=== PATIENT | female | born 1930 | race Caucasian/White ===

== ENCOUNTER → 2018-10-23 | Outpatient (CLI) | payer OTHER ==
[~2018-10-23] MED LIST: ALEVE220 MG PO; ASPIRIN325 PO; CITRACAL-VIT D1 EACH PO; COLACE100 MG PO; MELATONIN 5 MG1 EAC1 PO; METAMUCIL PAC1 UDPKT PO; MULTIVITAMIN; NEURONTIN 400400 M1 PO; NEURONTIN600 MG PO; NORCO 5-325 TA1 EACH PO; OMEPRAZOLE20 M2 PO; OXYCODONE HCL 55 MG PO; PERCOCET PO; TRAMADOL 50 MG50 MG PO; TYLENOL325 MG PO; XARELTO10 MG PO
== END ==
LOC: M.CT 10:00
DX: S09.90XA Unspecified injury of head, initial encounter (principal); G31.9 Degenerative disease of nervous system, unspecified; J32.3 Chronic sphenoidal sinusitis; H54.7 Unspecified visual loss; W19.XXXA Unspecified fall, initial encounter; Z91.81 History of falling; Y93.89 Activity, other specified; Y92.89 Other specified places as the place of occurrence of the external cause; Y99.8 Other external cause status

== ENCOUNTER 2018-12-09 06:01 | Emergency (ER) | payer OTHER ==
[~2018-12-09] VITALS: Ht 154.9 cm; Wt 64.4 kg
[2018-12-09] MEDS ORDERED: GABAPENTIN 100100 MG PO (06:13)
[2018-12-09] MEDS ORDERED: NEURONTIN 300300 M1 PO (06:14)
[2018-12-09 06:23] LABS: ABSOLUTE EOSINOPHILS 0.2 thou/uL (0.0-0.7); ABSOLUTE LYMPHOCYTES 1.2 thou/uL (0.8-5.3); ABSOLUTE MONOCYTES 0.4 thou/uL (0.0-1.2); ABSOLUTE NEUTROPHILS 3.4 thou/uL (1.6-8.1); BASOPHILS 0.9 %; HEMATOCRIT 42.6 % (37.0-47.0); HEMOGLOBIN 14.1 gm/dL (12.0-15.0); LYMPHOCYTES 22.5 %; MCH 30.1 pg (26.0-34.0); MCV 91.1 fL (80.0-100.0); MONOCYTES 8.3 %; MPV 8.2 fl. (7.2-11.1); NUCLEATED RBCS 0 /100WBC; PLATELET COUNT* 192 thou/uL (150-400); POLYS 65.3 %; RBC 4.68 mil/uL (4.20-5.00); RDW-CV 14.2 % (10.5-14.5); WBC 5.2 thou/uL (4.0-11.0)
[2018-12-09 06:34] LABS: ANION GAP 8 mmol/L (7-16); BUN 15 mg/dL (7-18); CALCIUM 9.4 mg/dL (8.5-10.1); CHLORIDE 101 mmol/L (98-107); CO2 32 mmol/L (21-32); CREATININE 0.8 mg/dL (0.6-1.3); GLUCOSE 96 mg/dL (70-99); POTASSIUM 3.9 mmol/L (3.5-5.1); SODIUM 141 mmol/L (136-145)
[2018-12-09 06:39] LABS: PROTIME 9.9 Seconds (9.20-11.50)
[2018-12-09 06:46] LABS: ALBUMIN 3.5 g/dL (3.4-5.0); ALKALINE PHOSPHATASE 72 U/L (46-116); LIPASE 109 U/L (73-393); NT-PRO BRAIN NAT PEPTIDE 125 pg/mL (<300); SGOT 14 U/L (15-37); SGPT 16 U/L (30-65); TOTAL BILIRUBIN 0.5 mg/dL (<0.1-1.0); TOTAL PROTEIN 6.9 g/dL (6.4-8.2); TROPONIN-I LEVEL <0.06 ng/mL (<0.06)
[2018-12-09] MEDS ORDERED: PREDNISONE 10 M10 M1 PO (08:09)
[2018-12-09] MEDS ORDERED: ACYCLOVIR 800800 MG PO (08:09)
[2018-12-09] MEDS ORDERED: NORCO 5-325 TA1 EAC1 PO (08:09)
[2018-12-09 09:01] VITALS: BP 150/68
--- NOTE | 2018-12-09 15:06 | EKG ---
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1930 Requested By: Sydney Martinez Order Number: [id number] MD: Dwight Patel Measurements Intervals [place] Rate: 67 P: 55 [place]: 178 QRS: 4 QRSD: 99 T: 37 QT: 383 QTc: 405 Interpretive Statements Sinus rhythm Borderline low voltage, extremity leads Baseline wander in lead(s) III,aVF Compared to ECG 12/15/2013 10:12:30 No significant changes Electronically Signed On 12-09-2018 15:06:22 CDT by Dwight Patel [email or web address] <ELECTRONICALLY SIGNED> By: Dwight Patel MD, [facility] 12/09/18 1506 [id number] Dwight Patel MD, [facility] /EPI
== END 2018-12-09 09:02 | disposition home or self-care (01) ==
LOC: M.ERS 06:01
PROVIDERS: Emergency Medicine
DX: B02.9 Zoster without complications (principal); R07.89 Other chest pain; Z90.710 Acquired absence of both cervix and uterus; Z90.49 Acquired absence of other specified parts of digestive tract; K21.9 Gastro-esophageal reflux disease without esophagitis; M79.7 Fibromyalgia; Z91.041 Radiographic dye allergy status; Z88.5 Allergy status to narcotic agent; Z88.0 Allergy status to penicillin; Z88.8 Allergy status to other drugs, medicaments and biological substances

== ENCOUNTER 2021-02-23 16:26 | Observation (INO) | payer MEDICARE ==
[~2021-02-23] VITALS: Ht 172.7 cm; Wt 66.7 kg
[~2021-02-23 16:26] MED LIST changes: +ACYCLOVIR 800800 MG PO; +GABAPENTIN 100100 MG PO; +NEURONTIN 300300 M1 PO; +NORCO 5-325 TA1 EAC1 PO; +PREDNISONE 10 M10 M1 PO
[2021-02-23 16:28] VITALS: BP 138/81
[2021-02-23] MEDS ORDERED: PROTONIX40 M4 PO (16:31)
[2021-02-23] MEDS ORDERED: COLACE100 MG PO (16:32)
[2021-02-23] MEDS ORDERED: ALLER-FEX180 MG PO (16:32)
[2021-02-23 17:05] LABS: ABSOLUTE BASOPHILS 0.1 thou/uL (0.0-0.2); ABSOLUTE EOSINOPHILS 0.1 thou/uL (0.0-0.7); ABSOLUTE LYMPHOCYTES 0.9 thou/uL (0.8-5.3); ABSOLUTE MONOCYTES 0.6 thou/uL (0.0-1.2); ABSOLUTE NEUTROPHILS 5.7 thou/uL (1.6-8.1); BASOPHILS 0.9 %; HEMATOCRIT 39.7 % (37.0-47.0); HEMOGLOBIN 13.4 gm/dL (12.0-15.0); LYMPHOCYTES 11.7 %; MCH 31.2 pg (26.0-34.0); MCHC 33.8 g/dL (28.0-37.0); MCV 92.2 fL (80.0-100.0); MONOCYTES 7.8 %; MPV 6.9 fl. (7.2-11.1); NUCLEATED RBCS 0 /100WBC; PLATELET COUNT* 286 thou/uL (150-400); POLYS 78.6 %; RDW-CV 13.5 % (10.5-14.5); WBC 7.3 thou/uL (4.0-11.0)
[2021-02-23 17:09] LABS: CALCIUM 9.5 mg/dL (8.5-10.1); CREATININE 0.8 mg/dL (0.6-1.3)
[2021-02-23 17:13] LABS: ALBUMIN 3.7 g/dL (3.4-5.0); TOTAL BILIRUBIN 0.4 mg/dL (<0.1-1.0); TOTAL PROTEIN 7.7 g/dL (6.4-8.2)
--- NOTE | 2021-02-23 17:51 | NUR ---
C-COLLAR REMOVED PER
[2021-02-23] MEDS ORDERED: ZOFRAN ODT4 MG DISSOLVE (18:19)
[2021-02-23 19:17] VITALS: BP 173/92
[2021-02-23 22:57] VITALS: BP 146/82
[2021-02-24 04:01] VITALS: BP 159/80
[2021-02-24 08:41] VITALS: BP 158/81
--- NOTE | 2021-02-24 09:54 | NUR ---
PT TAKEN TO PACU WITH BOARDING RN.
[2021-02-24] MEDS ORDERED: PEPCID20 MG PO (11:50)
[2021-02-24] MEDS ORDERED: ANORO ELLIPTA1 EACH INH (12:01)
--- NOTE | 2021-02-24 12:18 | EKG ---
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1930 Requested By: Shaun Maddox Order Number: [id number] MD: Chris Alvarez Measurements Intervals [place] Rate: 79 P: 57 FL: 173 QRS: 3 QRSD: 92 T: 33 QT: 406 QTc: 466 Interpretive Statements Sinus rhythm Low voltage, precordial leads Baseline wander in lead(s) III,aVF Compared to ECG 12/09/2018 06:05:36 No significant changes Electronically Signed On 02-24-2021 12:18:06 CDT by Chris Alvarez [email or web address] <ELECTRONICALLY SIGNED> By: Chris Alvarez MD, [facility] 02/24/21 1218 1647 1647 Chris Alvarez MD, [facility] /EPI
--- NOTE | 2021-02-24 12:47 | NUR ---
Called and spoke to Norris, son & RITCHIE. Pt and son have preplanned for the need of assisted living. Norris states already notified facility this am, he spoke to Giovany. Son mentioned SNU need was asked and if so would require 3 noc stay. Explained testing to date is not finding any abnormalities and had spoke of dc tomorrow. Son was in agreement with that and stated wants mom to go to [facility] where she already lives in [facility] apartment. Called [facility] admissions, spoke to Peyton, who requested referral packet to be sent and that she was very familiar with family and patient. Peyton also shared no assisted living rooms available at this time but pt could go to skilled unit as private pay til room ready. Stated she had discussed this with son and would call back and comfirm once referral packet received. Peyton # [phone]. Packet faxed to [phone].
[2021-02-24 16:00] VITALS: BP 160/85
[2021-02-24 20:00] VITALS: BP 149/92
[2021-02-25 02:53] VITALS: BP 139/77
[2021-02-25 06:07] VITALS: BP 136/82
[2021-02-25 09:17] VITALS: BP 119/58
--- NOTE | 2021-02-25 10:00 | NUR ---
recvd call from Fabiana/[facility] requesting Dx change to Syncope, Jimmy shared if that was the Dx Dr would have used it. JIMMY also explained already spoke to son yesterday and he is hiring private duty, non medical to stay with mom until AL room ready and that Jimmy had shared this update yesterday with AbiRodney Jung, called back and stated she called son and he will private pay for SNU bed until AL room ready.CM shared that was the original plan yesterday and not sure what happened on their end to change this. Notified and JIMMY BV covering patient today of above updates. Son will be here around noon to pick mom/pt up.
[2021-02-25 12:00] VITALS: BP 120/60
--- NOTE | 2021-02-25 13:43 | 2DMMODE ---
[place] [address] 2 D/M-MODE ECHOCARDIOGRAM Name: PHOENIX GRANADOS Room: [address] [place]#: [id number] Admission: 02/23/21 Attend Phys: Daren Jimenez Discharge: Date of : 34 Date of Service: 02/25/21 1342 Report #: [id number] THIS REPORT FOR: cc: Navjot Paulson MD, Matthew D MD Blick,Chris Levy MD [facility] ~ APPROVED REPORT Study performed: 02/25/2021 09:52:43 EXAM: Comprehensive 2D, Doppler, and color-flow Echocardiogram Patient Location: In-Patient Room #: 204 Status: routine BSA: 1.79 HR: 91 bpm BP: 136/82 mmHg Rhythm: NSR Other Information Study Quality: Good Indications Syncope 2D Dimensions IVSd: 10.15 (7-11mm) LVOT Diam: 19.89 (18-24mm) LVDd: 39.06 mm PWd: 10.43 (7-11mm) Ascending Ao: 29.31 (22-36mm) LVDs: 21.82 (25-40mm) Aortic Root: 31.39 mm Aortic Valve AoV Peak Lucas.: 1.28 m/s AO Peak Gr.: 6.53 mmHg LVOT Max P.17 mmHg AO Mean Gr.: 3.44 mmHg LVOT Mean P.56 mmHg LVOT Max V: 1.02 m/s AO V2 VTI: 18.56 cm LVOT Mean V: 0.55 m/s MARCOS (VTI): 2.55 cm2 LVOT V1 VTI: 15.23 cm Mitral Valve E/A Ratio: 0.65 MV Decel. Time: 296.29 ms MV E Max Lucas.: 0.72 m/[place] [address] 2 D/M-MODE ECHOCARDIOGRAM Name: PHOENIX GRANADOS Room: [address] Jeffrey#: [id number] Admission: 02/23/21 Attend Phys: Daren Jimenez Discharge: Date of : 34 Date of Service: 02/25/21 1342 Report #: [id number] MV PHT: 85.92 ms MVA (PHT): 2.56 cm2 TDI E/Lateral E': 10.29 E/Medial E': 14.40 Medial E' Lucas.: 0.05 m/s Lateral E' Lucas.: 0.07 m/s Pulmonary Valve PV Peak Lucas.: 0.92 m/s PV Peak Gr.: 3.41 mmHg Left Ventricle The left ventricle is normal size. There is normal LV segmental wall motion. There is normal left ventricular wall thickness. Left ventricular systolic function is normal. The left ventricular ejection fraction is within the normal range. LVEF is 65-70%. Grade I - abnormal relaxation pattern. Right Ventricle The right ventricle is normal size. The right ventricular systolic function is normal. Atria The left atrium size is normal. The right atrium size is normal. Aortic Valve The aortic valve is normal in structure. No aortic regurgitation is present. There is no aortic valvular stenosis. Mitral Valve The mitral valve is normal in structure. There is no mitral valve regurgitation noted. No evidence of mitral valve stenosis. Tricuspid Valve The tricuspid valve is normal in structure. Trace tricuspid regurgitation. Unable to assess PA pressure. Pulmonic Valve Pulmonic valve is not well visualized. There is no pulmonic valvular regurgitation. Great Vessels The aortic root is normal in size. IVC is normal in size and collapses >50% [place] [address] 2 D/M-MODE ECHOCARDIOGRAM Name: PHOENIX GRANADOS Room: [address] M.R.#: [id number] Admission: 02/23/21 Attend Phys: Daren Jimenez Discharge: Date of : 34 Date of Service: 02/25/21 1342 Report #: [id number] Pericardium There is no pericardial effusion. <Conclusion> Left ventricular systolic function is normal. The left ventricular ejection fraction is within the normal range. <ELECTRONICALLY SIGNED> By: Chris Alvarez MD, FACC 02/25/211341 41 41 Chris Alvarez MD, FAC /INF
--- NOTE | 2021-02-25 14:57 | NUR ---
ASSUMED PT CARE AT 0730. PT IS A&OX4. ASSESSMENT COMPLETED. PT UP WITH STAND BY ASSIST TO THE BATHROOM. PT DENIES ANY DIZZINESS THUS FAR TODAY. SAFETY MEASURES IN PLACE. MEDICATIONS ADMINISTERED ORDERED. NEW ORDER TO DISCHARGE PT TO [facility] FOR [facility]. SON HERE TO TRANSPORT RES TO THE FACILITY AT APPROX 1400. IV DC'D, HEART MONITOR REMOVED AND ALL BELONGINGS WITH PT. DISCHARGE PAPERS GIVEN TO SON. REPORT GIVEN TO RDO.
--- NOTE | 2021-02-25 15:34 | NUR ---
Pt discharged to [facility] to LTC, using her life care benefit with therapies. Son transported
== END 2021-02-25 14:35 | disposition home or self-care (01) ==
LOC: M.ERS 16:26 → M.TBA-ER 18:42 → M.2W 18:42
PROVIDERS: Family Medicine; ADMIT Internal Medicine; ATTEND Internal Medicine
DX: S01.01XA Laceration without foreign body of scalp, initial encounter (principal); K21.9 Gastro-esophageal reflux disease without esophagitis; M79.7 Fibromyalgia; Z20.822 Contact with and (suspected) exposure to COVID-19; W19.XXXA Unspecified fall, initial encounter; Y92.89 Other specified places as the place of occurrence of the external cause; Y93.89 Activity, other specified; Z79.899 Other long term (current) drug therapy